=== PATIENT | female | born 1970 | race Caucasian/White ===

== ENCOUNTER → 2017-04-10 | Outpatient (CLI) | payer BC ==
[~2017-04-10] MED LIST: ALLOPURINOL100 MG PO; FOCALIN XR40 MG PO; INDOMETHACIN50 MG PO; LEVOTHYROXIN0.075 M2 PO; METOLAZONE 2.52.5 MG PO; PILOCARPINE HYDR5 MG PO; POTASSIUM CHLO10 ME3 PO; PRISTIQ50 MG PO; SPIRONOLACTONE50 MG PO; TERAZOSIN HCL10 MG OR; VALACYCLOVIR H500 M1 PO; VIVELLE-DO0.1 MG/24 TD
== END ==
LOC: CARL-LAB 11:38
DX: R73.9 Hyperglycemia, unspecified (principal)